=== PATIENT | male | born 1955 | race Caucasian/White ===

== ENCOUNTER → 2016-05-01 | Outpatient (CLI) | payer OTHER ==
[~2016-05-01] MED LIST: ADVAIR 250-501 EACH INH; ALBUTEROL0.63 MG/3 IH; ASPIR 8181 MG PO; CARVEDILOL12.5 MG PO; COMBIVENT RESPIM4 GM IH; CYMBALTA60 MG PO; FOLIC ACID1 MG PO; GENTAMICIN 0.1%15 G2 TOP; LYRICA 75 MG CA75 MG PO; MS CONTIN 60 MG60 M1 PO; OXYCODONE HCL30 MG PO; POTASSIUM20 PO; VITAMIN B-1100 M1 PO; ZOCOR 10 MG TAB10 MG PO; [UNRECOGNIZED DRUG - CODE] PO
== END ==
LOC: HYPER 07:49
DX: L97.521 Non-pressure chronic ulcer of other part of left foot limited to breakdown of skin (principal); S91.301D Unspecified open wound, right foot, subsequent encounter; I73.9 Peripheral vascular disease, unspecified; G62.9 Polyneuropathy, unspecified; F17.210 Nicotine dependence, cigarettes, uncomplicated; Z95.1 Presence of aortocoronary bypass graft; Z89.429 Acquired absence of other toe(s), unspecified side; Z72.89 Other problems related to lifestyle; X58.XXXD Exposure to other specified factors, subsequent encounter

== ENCOUNTER → 2016-07-22 | Outpatient (CLI) | payer OTHER | LOC: HYPER 07:21 | DX: T81.89XD Other complications of procedures, not elsewhere classified, subsequent encounter (principal); L97.521 Non-pressure chronic ulcer of other part of left foot limited to breakdown of skin; G62.9 Polyneuropathy, unspecified; I73.9 Peripheral vascular disease, unspecified; J44.9 Chronic obstructive pulmonary disease, unspecified; E78.00 Pure hypercholesterolemia, unspecified; I25.2 Old myocardial infarction; F17.210 Nicotine dependence, cigarettes, uncomplicated; Z95.1 Presence of aortocoronary bypass graft; Z95.0 Presence of cardiac pacemaker; Z89.429 Acquired absence of other toe(s), unspecified side; Z72.89 Other problems related to lifestyle; Y83.8 Other surgical procedures as the cause of abnormal reaction of the patient, or of later complication, without mention of misadventure at the time of the procedure ==

== ENCOUNTER → 2016-09-01 | Outpatient (CLI) | payer OTHER | LOC: HYPER 08-12 07:03 | DX: L97.521 Non-pressure chronic ulcer of other part of left foot limited to breakdown of skin (principal); S91.301D Unspecified open wound, right foot, subsequent encounter; G62.9 Polyneuropathy, unspecified; I73.9 Peripheral vascular disease, unspecified; E24.9 Cushing's syndrome, unspecified; J44.9 Chronic obstructive pulmonary disease, unspecified; I25.10 Atherosclerotic heart disease of native coronary artery without angina pectoris; E78.00 Pure hypercholesterolemia, unspecified; I25.2 Old myocardial infarction; F17.210 Nicotine dependence, cigarettes, uncomplicated; Z72.89 Other problems related to lifestyle; Z95.1 Presence of aortocoronary bypass graft; Z95.0 Presence of cardiac pacemaker; Z89.429 Acquired absence of other toe(s), unspecified side; X58.XXXD Exposure to other specified factors, subsequent encounter ==

== ENCOUNTER → 2016-09-30 | Outpatient (CLI) | payer OTHER | LOC: HYPER 07:04 | DX: T81.89XD Other complications of procedures, not elsewhere classified, subsequent encounter (principal); L89.893 Pressure ulcer of other site, stage 3; G62.9 Polyneuropathy, unspecified; I73.9 Peripheral vascular disease, unspecified; L97.512 Non-pressure chronic ulcer of other part of right foot with fat layer exposed; E24.9 Cushing's syndrome, unspecified; J44.9 Chronic obstructive pulmonary disease, unspecified; I25.10 Atherosclerotic heart disease of native coronary artery without angina pectoris; E78.00 Pure hypercholesterolemia, unspecified; F17.210 Nicotine dependence, cigarettes, uncomplicated; Z72.89 Other problems related to lifestyle; Y83.8 Other surgical procedures as the cause of abnormal reaction of the patient, or of later complication, without mention of misadventure at the time of the procedure ==

== ENCOUNTER → 2016-11-04 | Outpatient (CLI) | payer OTHER | LOC: HYPER 06:55 | DX: T81.89XD Other complications of procedures, not elsewhere classified, subsequent encounter (principal); L97.521 Non-pressure chronic ulcer of other part of left foot limited to breakdown of skin; L89.893 Pressure ulcer of other site, stage 3; L97.512 Non-pressure chronic ulcer of other part of right foot with fat layer exposed; G62.9 Polyneuropathy, unspecified; I73.9 Peripheral vascular disease, unspecified; E24.9 Cushing's syndrome, unspecified; J44.9 Chronic obstructive pulmonary disease, unspecified; I25.10 Atherosclerotic heart disease of native coronary artery without angina pectoris; E78.00 Pure hypercholesterolemia, unspecified; I25.2 Old myocardial infarction; Z95.0 Presence of cardiac pacemaker; Z95.1 Presence of aortocoronary bypass graft; Z89.429 Acquired absence of other toe(s), unspecified side; F17.210 Nicotine dependence, cigarettes, uncomplicated; Z72.89 Other problems related to lifestyle; Y83.8 Other surgical procedures as the cause of abnormal reaction of the patient, or of later complication, without mention of misadventure at the time of the procedure ==

== ENCOUNTER → 2016-11-23 | Outpatient (CLI) | payer OTHER | LOC: HYPER 07:03 | DX: S91.301D Unspecified open wound, right foot, subsequent encounter (principal); S90.424A Blister (nonthermal), right lesser toe(s), initial encounter; J44.9 Chronic obstructive pulmonary disease, unspecified; I25.10 Atherosclerotic heart disease of native coronary artery without angina pectoris; E78.00 Pure hypercholesterolemia, unspecified; I73.9 Peripheral vascular disease, unspecified; I25.2 Old myocardial infarction; F17.210 Nicotine dependence, cigarettes, uncomplicated; Z72.89 Other problems related to lifestyle; Z95.1 Presence of aortocoronary bypass graft; Z89.429 Acquired absence of other toe(s), unspecified side; Z95.0 Presence of cardiac pacemaker; X58.XXXA Exposure to other specified factors, initial encounter; Y93.89 Activity, other specified; Y92.89 Other specified places as the place of occurrence of the external cause; Y99.8 Other external cause status ==

== ENCOUNTER → 2017-01-01 | Outpatient (CLI) | payer OTHER | LOC: HYPER 12-15 10:49 | DX: L97.511 Non-pressure chronic ulcer of other part of right foot limited to breakdown of skin (principal); I73.9 Peripheral vascular disease, unspecified; J44.9 Chronic obstructive pulmonary disease, unspecified; I25.10 Atherosclerotic heart disease of native coronary artery without angina pectoris; E78.00 Pure hypercholesterolemia, unspecified; Z95.1 Presence of aortocoronary bypass graft; Z95.0 Presence of cardiac pacemaker; Z89.421 Acquired absence of other right toe(s); F17.210 Nicotine dependence, cigarettes, uncomplicated; Z72.89 Other problems related to lifestyle ==

== ENCOUNTER → 2017-04-29 | Outpatient (CLI) | payer OTHER ==
[~2017-04-29] MED LIST changes: +ALDACTONE25 MG PO; +CENTRUM SILVER1 EAC2 PO; +CHLORZOXAZONE500 MG PO; +DOXYCYCLINE HY100 M3 PO; +FISH OIL 1,001000 M2 PO; +IMIPRAMINE HCL25 MG PO; +LISINOPRIL5 MG PO; +NEURONTIN600 MG PO; +PERCOCET 7.5-31 EACH PO; +PLAVIX 75 MG TA75 M1 PO; +TRAZODONE HCL50 MG PO
== END ==
LOC: HYPER 03-03 10:52
DX: S91.301D Unspecified open wound, right foot, subsequent encounter (principal); L84 Corns and callosities; J44.9 Chronic obstructive pulmonary disease, unspecified; I25.10 Atherosclerotic heart disease of native coronary artery without angina pectoris; I73.9 Peripheral vascular disease, unspecified; E78.00 Pure hypercholesterolemia, unspecified; G62.9 Polyneuropathy, unspecified; I25.2 Old myocardial infarction; F17.210 Nicotine dependence, cigarettes, uncomplicated; Z95.1 Presence of aortocoronary bypass graft; Z95.0 Presence of cardiac pacemaker; Z72.89 Other problems related to lifestyle; X58.XXXD Exposure to other specified factors, subsequent encounter

== ENCOUNTER → 2017-06-22 | Outpatient (CLI) | payer OTHER | LOC: HYPER 06-15 06:54 | DX: T81.31XD Disruption of external operation (surgical) wound, not elsewhere classified, subsequent encounter (principal); L89.892 Pressure ulcer of other site, stage 2; L97.811 Non-pressure chronic ulcer of other part of right lower leg limited to breakdown of skin; I87.331 Chronic venous hypertension (idiopathic) with ulcer and inflammation of right lower extremity; I73.9 Peripheral vascular disease, unspecified; L84 Corns and callosities; I25.10 Atherosclerotic heart disease of native coronary artery without angina pectoris; E78.00 Pure hypercholesterolemia, unspecified; G62.9 Polyneuropathy, unspecified; J44.9 Chronic obstructive pulmonary disease, unspecified; F17.210 Nicotine dependence, cigarettes, uncomplicated; Z72.89 Other problems related to lifestyle; Z95.0 Presence of cardiac pacemaker; Z95.1 Presence of aortocoronary bypass graft; Y83.8 Other surgical procedures as the cause of abnormal reaction of the patient, or of later complication, without mention of misadventure at the time of the procedure ==

== ENCOUNTER → 2017-07-06 | Outpatient (CLI) | payer OTHER | LOC: HYPER 06:49 | DX: T81.31XD Disruption of external operation (surgical) wound, not elsewhere classified, subsequent encounter (principal); I87.331 Chronic venous hypertension (idiopathic) with ulcer and inflammation of right lower extremity; L97.811 Non-pressure chronic ulcer of other part of right lower leg limited to breakdown of skin; L84 Corns and callosities; I73.9 Peripheral vascular disease, unspecified; G62.9 Polyneuropathy, unspecified; J44.9 Chronic obstructive pulmonary disease, unspecified; I25.10 Atherosclerotic heart disease of native coronary artery without angina pectoris; E78.00 Pure hypercholesterolemia, unspecified; F17.210 Nicotine dependence, cigarettes, uncomplicated; Z95.1 Presence of aortocoronary bypass graft; Z95.0 Presence of cardiac pacemaker; Z72.89 Other problems related to lifestyle; Y83.8 Other surgical procedures as the cause of abnormal reaction of the patient, or of later complication, without mention of misadventure at the time of the procedure ==

== ENCOUNTER → 2017-09-03 | Outpatient (CLI) | payer OTHER ==
[~2017-09-03] MED LIST changes: -ALDACTONE25 MG PO; -CENTRUM SILVER1 EAC2 PO; -CHLORZOXAZONE500 MG PO; -DOXYCYCLINE HY100 M3 PO; -FISH OIL 1,001000 M2 PO; -IMIPRAMINE HCL25 MG PO; -LISINOPRIL5 MG PO; -NEURONTIN600 MG PO; -PERCOCET 7.5-31 EACH PO; -PLAVIX 75 MG TA75 M1 PO; -TRAZODONE HCL50 MG PO
[2017-09-03 10:19] LABS: CREATININE 0.8 mg/dL (0.7-1.3)
== END ==
LOC: CAT 09-02 16:47 → LABMALL 07:23 → CAT 07:23
PROVIDERS: Emergency Medicine
DX: L97.519 Non-pressure chronic ulcer of other part of right foot with unspecified severity (principal); G62.9 Polyneuropathy, unspecified; M86.8X7 Other osteomyelitis, ankle and foot

== ENCOUNTER → 2017-09-14 | Outpatient (CLI) | payer OTHER | LOC: HYPER 06:43 | DX: T81.31XD Disruption of external operation (surgical) wound, not elsewhere classified, subsequent encounter (principal); I87.331 Chronic venous hypertension (idiopathic) with ulcer and inflammation of right lower extremity; L97.811 Non-pressure chronic ulcer of other part of right lower leg limited to breakdown of skin; I73.9 Peripheral vascular disease, unspecified; E78.00 Pure hypercholesterolemia, unspecified; L84 Corns and callosities; I25.10 Atherosclerotic heart disease of native coronary artery without angina pectoris; G62.9 Polyneuropathy, unspecified; J44.9 Chronic obstructive pulmonary disease, unspecified; F17.210 Nicotine dependence, cigarettes, uncomplicated; Z95.1 Presence of aortocoronary bypass graft; Z95.0 Presence of cardiac pacemaker; Y83.8 Other surgical procedures as the cause of abnormal reaction of the patient, or of later complication, without mention of misadventure at the time of the procedure ==

== ENCOUNTER 2017-10-05 05:28 | Day surgery (SDC) | payer OTHER ==
[~2017-10-05] VITALS: Ht 182.9 cm; Wt 83.9 kg
--- NOTE | ~2017-10-05 | HC ---
[facility] [place] [address] CONSULTATION Name: RODRIGO BAGLEY Room #: [facility].#: [id number] Admission: 10/05/17 Attend Phys: Trisha MalikJaci Goldon, Discharge: 10/06/17 Date of : 59 Report #: [id number] THIS REPORT FOR: //name// CC: FAM unknown Trisha Carlos DATE OF SERVICE: 10/05/2017 HISTORY: This is a 62-year-old male patient well known to the Wound Care Service here who was admitted for planned foot surgery by Podiatry. He has undergone a right percutaneous TOM and resection plantar second metatarsal head for a chronic neuropathic ulceration. He is scheduled for discharge today. He denies any pain in his foot. MEDICATIONS: Include aspirin, carvedilol, duloxetine, folic acid, potassium, simvastatin, thiamine, albuterol, fluticasone and salmeterol, imipramine, clopidogrel, chlorzoxazone, gabapentin, lisinopril, spironolactone, doxycycline, trazodone. ALLERGIES: None. PAST MEDICAL HISTORY: Positive for hypertension, hyperlipidemia, coronary artery disease, peripheral vascular disease, depression, COPD. SOCIAL HISTORY: The patient is a daily smoker one half to 1-1/2 packs per day for 42 years. No alcohol use. FAMILY HISTORY: Noncontributory. REVIEW OF SYSTEMS: A 14-point review of systems is negative other than per history of present illness. PHYSICAL EXAMINATION: VITAL SIGNS: At this time include pulse 86, respiratory rate of 16, blood pressure 155/96, temperature 97.8. GENERAL: This is a chronically ill-appearing male patient who appears to be in minimal distress. HEENT: Head is normocephalic. Nose and throat are clear. NECK: Supple. LUNGS: Clear. ABDOMEN: Soft. Bowel sounds present. EXTREMITIES: Right foot demonstrates intact sutures near the second metatarsal head as well as in the Achilles region. No evidence of infection. Small plantar ulcer is noted that is clean and granulating. CLINICAL IMPRESSION: Neuropathic ulceration of the right foot status post [facility] [address] [place] [address] CONSULTATION Name: KEVYNALIA Room #: [facility] Elissa#: [id number] Admission: 10/05/17 Attend Phys: Trisha Gonzalez, Discharge: 10/06/17 Date of : 59 Report #: [id number] resection of second metatarsal head and Achilles lengthening procedure. RECOMMENDATIONS: The patient will be discharged home. Recommend silver alginate to the areas of the incision line and plantar ulceration. He has to follow up with Dr. Gonzalez tomorrow. We will see him in the office for wound care followup on Wednesday. I appreciate being asked to see him while here in the hospital. <ELECTRONICALLY SIGNED> By: Jerad Mondragon MD 10/19/17 1522 1812 0028 Jerad Mondragon MD /radha
--- NOTE | ~2017-10-05 | PATH ---
[facility] [address] [place] [address] PATHOLOGY RPT PROCEDURE Name: RODRIGO CALI Room #: DEP SDC M.R.#: [id number] Admission: 10/05/17 Date of : 59 Discharge: 10/06/17 Report #: [id number] Path Case #: [id number] L[facility] Accession Number: [id number] . 01 Material submitted: . RT FOOT 2ND METATARSAL HEAD . 01 Clinical history: . Right foot osteomyelitis, neuropathic ulcer, R/O osteomyelitis . 02 Diagnosis: "RT foot second metatarsal head, R/O osteomyelitis", excision: - Decalcified bone, articular cartilage and scant periosteum with reactive / degenerative changes, focal fibrosis, chronic inflammation and bony remodeling; no active acute osteomyelitis identified. (see comment). . [facility]/10/07/2017 . 02 Comment: The bony changes may represent a component of chronic osteomyelitis. Clinical and radiographic correlation is recommended. . (CLW:mml; 10/07/2017) . . 02 Electronically signed: . Lottie Olivares MD, Pathologist NPI- [id number] . 01 Gross description: . The specimen is received in formalin, labeled "Rodrigo Cali, second metatarsal head," and additionally labeled on the requisition as, "right foot second metatarsal head". Received is a segment of light [place] bone with smooth articulating surfaces measuring 1.5 x 1.5 x 0.8 cm in greatest dimensions. The surgical margin is inked. The specimen is submitted entirely in cassette A1, following decalcification. ([facility]; 10/06/2017) QAC/QAC . 02 CPT . 986598, [id number] Performed at: [address] [id number] MD Newton Sloan MD Phone: [phone] Performed at: 02 [facility] [address] [place] [address] PATHOLOGY RPT PROCEDURE Name: RODRIGO CALI Room #: DEP [facility].#: [id number] Admission: 10/05/17 Date of : 59 Discharge: 10/06/17 Report #: [id number] Path Case #: [id number] [address] [place], [place] [id number] MD Lakisha Barajas MD Phone: [phone]
[~2017-10-05 05:28] MED LIST changes: +ALDACTONE25 MG PO; +CHLORZOXAZONE500 MG PO; +DOXYCYCLINE HY100 M3 PO; +IMIPRAMINE HCL25 MG PO; +LISINOPRIL5 MG PO; +NEURONTIN600 MG PO; +PLAVIX 75 MG TA75 M1 PO; +TRAZODONE HCL50 MG PO
[2017-10-05 13:16] LABS: HEMATOCRIT 44.7 % (42.0-52.0); HEMOGLOBIN 15.6 gm/dL (14.0-18.0); MCH 32.5 pg (26.0-34.0); MCHC 34.8 g/dL (28.0-37.0); MCV 93.5 fL (80.0-100.0); RBC 4.79 mil/uL (4.50-6.00); RDW 14.3 % (10.5-14.5); WBC 9.9 thou/uL (4.0-11.0)
[2017-10-05 13:25] LABS: CALCIUM 9.9 mg/dL (8.5-10.1); CREATININE 0.8 mg/dL (0.7-1.3); POTASSIUM 3.6 mmol/L (3.5-5.1)
[2017-10-05 14:00] VITALS: BP 130/94
[2017-10-05 17:10] VITALS: BP 162/103
[2017-10-05 17:40] VITALS: BP 157/95
[2017-10-05 18:10] VITALS: BP 167/102
[2017-10-05 19:37] VITALS: BP 158/82
[2017-10-06 04:00] VITALS: BP 137/78
[2017-10-06 05:30] LABS: HEMATOCRIT 38.5 % (42.0-52.0); MCH 32.2 pg (26.0-34.0); MCHC 34.1 g/dL (28.0-37.0); MCV 94.3 fL (80.0-100.0); RBC 4.08 mil/uL (4.50-6.00); RDW 14.8 % (10.5-14.5); WBC 8.5 thou/uL (4.0-11.0)
[2017-10-06 05:35] LABS: HEMOGLOBIN 13.1 gm/dL (14.0-18.0)
[2017-10-06 05:56] LABS: CALCIUM 8.3 mg/dL (8.5-10.1); CREATININE 0.8 mg/dL (0.7-1.3); POTASSIUM 3.5 mmol/L (3.5-5.1)
[2017-10-06 08:00] VITALS: BP 155/96
[2017-10-06] MEDS ORDERED: PERCOCET 7.5-31 EACH PO (10:17)
[2017-10-06 11:23] VITALS: BP 155/96
[2017-10-06 11:58] VITALS: BP 155/96
== END 2017-10-06 11:59 | disposition home or self-care (01) ==
LOC: OR 05:28 → TBA 05:29 → OR 15:58 → 4N 16:53 → ENTRNSPT 10-06 11:39 → EDTRNSPTSTS 10-06 11:41 → OR 10-06 11:59
PROVIDERS: Hospitalist; Podiatrist Foot & Ankle Surgery
DX: M19.071 Primary osteoarthritis, right ankle and foot (principal); L97.512 Non-pressure chronic ulcer of other part of right foot with fat layer exposed; M21.6X1 Other acquired deformities of right foot; M24.571 Contracture, right ankle; I10 Essential (primary) hypertension; I25.10 Atherosclerotic heart disease of native coronary artery without angina pectoris; E78.5 Hyperlipidemia, unspecified; I73.9 Peripheral vascular disease, unspecified; F11.20 Opioid dependence, uncomplicated; G80.9 Cerebral palsy, unspecified; J43.9 Emphysema, unspecified; F17.210 Nicotine dependence, cigarettes, uncomplicated; F32.9 Major depressive disorder, single episode, unspecified; Z98.890 Other specified postprocedural states; Z79.899 Other long term (current) drug therapy; Z95.0 Presence of cardiac pacemaker; Z79.82 Long term (current) use of aspirin; Z95.1 Presence of aortocoronary bypass graft
CPT/HCPCS: 10790; 50010; 50101; 50386; 50951; 57091; 62110; 62850; 70005

== ENCOUNTER → 2017-11-09 | Outpatient (CLI) | payer OTHER ==
[~2017-11-09] MED LIST changes: +PERCOCET 7.5-31 EACH PO
== END ==
LOC: HYPER 10-12 11:56
DX: T81.31XD Disruption of external operation (surgical) wound, not elsewhere classified, subsequent encounter (principal); L97.511 Non-pressure chronic ulcer of other part of right foot limited to breakdown of skin; I73.9 Peripheral vascular disease, unspecified; L84 Corns and callosities; I25.10 Atherosclerotic heart disease of native coronary artery without angina pectoris; E78.00 Pure hypercholesterolemia, unspecified; G60.3 Idiopathic progressive neuropathy; G62.9 Polyneuropathy, unspecified; J44.9 Chronic obstructive pulmonary disease, unspecified; F17.210 Nicotine dependence, cigarettes, uncomplicated; Z95.1 Presence of aortocoronary bypass graft; Z95.0 Presence of cardiac pacemaker; Y83.8 Other surgical procedures as the cause of abnormal reaction of the patient, or of later complication, without mention of misadventure at the time of the procedure

== ENCOUNTER → 2017-12-14 | Outpatient (CLI) | payer OTHER | LOC: HYPER 07:00 | DX: T81.31XD Disruption of external operation (surgical) wound, not elsewhere classified, subsequent encounter (principal); L89.893 Pressure ulcer of other site, stage 3; I73.9 Peripheral vascular disease, unspecified; L84 Corns and callosities; I25.10 Atherosclerotic heart disease of native coronary artery without angina pectoris; E78.00 Pure hypercholesterolemia, unspecified; G62.9 Polyneuropathy, unspecified; G60.3 Idiopathic progressive neuropathy; J44.9 Chronic obstructive pulmonary disease, unspecified; F17.210 Nicotine dependence, cigarettes, uncomplicated; Z95.0 Presence of cardiac pacemaker; Y83.8 Other surgical procedures as the cause of abnormal reaction of the patient, or of later complication, without mention of misadventure at the time of the procedure ==

== ENCOUNTER → 2018-02-10 | Outpatient (CLI) | payer OTHER ==
[~2018-02-10] MED LIST changes: +CENTRUM SILVER1 EAC2 PO; +FISH OIL 1,001000 M2 PO
== END ==
LOC: HYPER 06:28
DX: T87.89 Other complications of amputation stump (principal); L97.511 Non-pressure chronic ulcer of other part of right foot limited to breakdown of skin; L84 Corns and callosities; E78.00 Pure hypercholesterolemia, unspecified; E24.9 Cushing's syndrome, unspecified; G60.3 Idiopathic progressive neuropathy; I73.9 Peripheral vascular disease, unspecified; I25.10 Atherosclerotic heart disease of native coronary artery without angina pectoris; I25.2 Old myocardial infarction; J44.9 Chronic obstructive pulmonary disease, unspecified; F17.210 Nicotine dependence, cigarettes, uncomplicated; Z95.1 Presence of aortocoronary bypass graft; Z95.0 Presence of cardiac pacemaker; Z89.429 Acquired absence of other toe(s), unspecified side; Y83.5 Amputation of limb(s) as the cause of abnormal reaction of the patient, or of later complication, without mention of misadventure at the time of the procedure

== ENCOUNTER → 2018-07-04 | Outpatient (CLI) | payer OTHER | LOC: HYPER 03-10 09:06 | DX: L97.511 Non-pressure chronic ulcer of other part of right foot limited to breakdown of skin (principal); I73.9 Peripheral vascular disease, unspecified; L84 Corns and callosities; I25.10 Atherosclerotic heart disease of native coronary artery without angina pectoris; E78.00 Pure hypercholesterolemia, unspecified; G62.9 Polyneuropathy, unspecified; G60.3 Idiopathic progressive neuropathy; J44.9 Chronic obstructive pulmonary disease, unspecified; F17.210 Nicotine dependence, cigarettes, uncomplicated ==

== ENCOUNTER → 2018-08-15 | Outpatient (CLI) | payer OTHER | LOC: HYPER 08-01 07:01 | DX: L97.511 Non-pressure chronic ulcer of other part of right foot limited to breakdown of skin (principal); L84 Corns and callosities; E78.00 Pure hypercholesterolemia, unspecified; G62.9 Polyneuropathy, unspecified; I73.9 Peripheral vascular disease, unspecified; I25.10 Atherosclerotic heart disease of native coronary artery without angina pectoris; I25.2 Old myocardial infarction; J44.9 Chronic obstructive pulmonary disease, unspecified; F17.210 Nicotine dependence, cigarettes, uncomplicated; Z95.1 Presence of aortocoronary bypass graft; Z95.0 Presence of cardiac pacemaker ==

== ENCOUNTER → 2018-09-06 | Outpatient (CLI) | payer OTHER | LOC: HYPER 06:57 | DX: L89.893 Pressure ulcer of other site, stage 3 (principal); L97.511 Non-pressure chronic ulcer of other part of right foot limited to breakdown of skin; I73.9 Peripheral vascular disease, unspecified; G60.3 Idiopathic progressive neuropathy; G62.9 Polyneuropathy, unspecified; I25.10 Atherosclerotic heart disease of native coronary artery without angina pectoris; E78.00 Pure hypercholesterolemia, unspecified; L84 Corns and callosities; J44.9 Chronic obstructive pulmonary disease, unspecified; F17.210 Nicotine dependence, cigarettes, uncomplicated; Z95.0 Presence of cardiac pacemaker ==

== ENCOUNTER → 2018-10-19 | Outpatient (CLI) | payer OTHER | LOC: HYPER 10-04 06:38 | DX: L89.893 Pressure ulcer of other site, stage 3 (principal); L97.511 Non-pressure chronic ulcer of other part of right foot limited to breakdown of skin; I73.9 Peripheral vascular disease, unspecified; I25.10 Atherosclerotic heart disease of native coronary artery without angina pectoris; G60.3 Idiopathic progressive neuropathy; L84 Corns and callosities; E78.00 Pure hypercholesterolemia, unspecified; J44.9 Chronic obstructive pulmonary disease, unspecified; F17.210 Nicotine dependence, cigarettes, uncomplicated; Z95.0 Presence of cardiac pacemaker ==

== ENCOUNTER → 2018-12-01 | Outpatient (CLI) | payer OTHER | LOC: HYPER 11-09 06:13 | DX: L89.893 Pressure ulcer of other site, stage 3 (principal); L97.512 Non-pressure chronic ulcer of other part of right foot with fat layer exposed; I73.9 Peripheral vascular disease, unspecified; L84 Corns and callosities; I25.10 Atherosclerotic heart disease of native coronary artery without angina pectoris; E78.00 Pure hypercholesterolemia, unspecified; G60.3 Idiopathic progressive neuropathy; G62.9 Polyneuropathy, unspecified; J44.9 Chronic obstructive pulmonary disease, unspecified; F17.210 Nicotine dependence, cigarettes, uncomplicated ==

== ENCOUNTER → 2018-12-28 | Outpatient (CLI) | payer OTHER | LOC: HYPER 12-09 14:10 | DX: L89.893 Pressure ulcer of other site, stage 3 (principal); S90.414D Abrasion, right lesser toe(s), subsequent encounter; I73.9 Peripheral vascular disease, unspecified; I25.10 Atherosclerotic heart disease of native coronary artery without angina pectoris; E78.00 Pure hypercholesterolemia, unspecified; G60.3 Idiopathic progressive neuropathy; G62.9 Polyneuropathy, unspecified; J44.9 Chronic obstructive pulmonary disease, unspecified; F17.210 Nicotine dependence, cigarettes, uncomplicated; X58.XXXD Exposure to other specified factors, subsequent encounter ==

== ENCOUNTER → 2019-01-12 | Outpatient (CLI) | payer OTHER | LOC: HYPER 06:59 | DX: L89.893 Pressure ulcer of other site, stage 3 (principal); L97.511 Non-pressure chronic ulcer of other part of right foot limited to breakdown of skin; L84 Corns and callosities; I25.10 Atherosclerotic heart disease of native coronary artery without angina pectoris; I73.9 Peripheral vascular disease, unspecified; G60.3 Idiopathic progressive neuropathy; G62.9 Polyneuropathy, unspecified; E78.00 Pure hypercholesterolemia, unspecified; J44.9 Chronic obstructive pulmonary disease, unspecified; F17.210 Nicotine dependence, cigarettes, uncomplicated ==

== ENCOUNTER → 2019-02-02 | Outpatient (CLI) | payer OTHER | LOC: HYPER 10:15 | DX: L89.893 Pressure ulcer of other site, stage 3 (principal); L97.512 Non-pressure chronic ulcer of other part of right foot with fat layer exposed; G60.3 Idiopathic progressive neuropathy; L84 Corns and callosities; J44.9 Chronic obstructive pulmonary disease, unspecified; I25.10 Atherosclerotic heart disease of native coronary artery without angina pectoris; E78.00 Pure hypercholesterolemia, unspecified; I73.89 Other specified peripheral vascular diseases; F17.210 Nicotine dependence, cigarettes, uncomplicated; Z95.1 Presence of aortocoronary bypass graft; Z95.0 Presence of cardiac pacemaker; Z89.429 Acquired absence of other toe(s), unspecified side; Z79.82 Long term (current) use of aspirin ==

== ENCOUNTER → 2019-02-23 | Outpatient (CLI) | payer OTHER | LOC: HYPER 03:55 | DX: L89.893 Pressure ulcer of other site, stage 3 (principal); L97.511 Non-pressure chronic ulcer of other part of right foot limited to breakdown of skin; S90.414D Abrasion, right lesser toe(s), subsequent encounter; L84 Corns and callosities; E78.00 Pure hypercholesterolemia, unspecified; I25.10 Atherosclerotic heart disease of native coronary artery without angina pectoris; I73.9 Peripheral vascular disease, unspecified; G60.3 Idiopathic progressive neuropathy; G62.9 Polyneuropathy, unspecified; J44.9 Chronic obstructive pulmonary disease, unspecified; F17.210 Nicotine dependence, cigarettes, uncomplicated; X58.XXXD Exposure to other specified factors, subsequent encounter ==

== ENCOUNTER → 2019-03-03 | Outpatient (CLI) | payer OTHER | LOC: HYPER 07:52 | DX: L97.511 Non-pressure chronic ulcer of other part of right foot limited to breakdown of skin (principal); L89.893 Pressure ulcer of other site, stage 3; S90.414D Abrasion, right lesser toe(s), subsequent encounter; L84 Corns and callosities; G60.3 Idiopathic progressive neuropathy; E78.00 Pure hypercholesterolemia, unspecified; I25.10 Atherosclerotic heart disease of native coronary artery without angina pectoris; I73.9 Peripheral vascular disease, unspecified; I25.2 Old myocardial infarction; J44.9 Chronic obstructive pulmonary disease, unspecified; F17.210 Nicotine dependence, cigarettes, uncomplicated; Z95.1 Presence of aortocoronary bypass graft; Z95.0 Presence of cardiac pacemaker; X58.XXXD Exposure to other specified factors, subsequent encounter ==

== ENCOUNTER → 2019-03-10 | Outpatient (CLI) | payer OTHER | LOC: HYPER 13:00 | DX: L89.893 Pressure ulcer of other site, stage 3 (principal); L97.511 Non-pressure chronic ulcer of other part of right foot limited to breakdown of skin; S90.414D Abrasion, right lesser toe(s), subsequent encounter; L84 Corns and callosities; I73.9 Peripheral vascular disease, unspecified; I25.10 Atherosclerotic heart disease of native coronary artery without angina pectoris; E78.00 Pure hypercholesterolemia, unspecified; G60.3 Idiopathic progressive neuropathy; G62.9 Polyneuropathy, unspecified; J44.9 Chronic obstructive pulmonary disease, unspecified; F17.210 Nicotine dependence, cigarettes, uncomplicated; Z95.0 Presence of cardiac pacemaker; X58.XXXD Exposure to other specified factors, subsequent encounter ==

== ENCOUNTER → 2019-03-15 | Outpatient (CLI) | payer OTHER | LOC: HYPER 16:54 | DX: L89.893 Pressure ulcer of other site, stage 3 (principal); S90.414D Abrasion, right lesser toe(s), subsequent encounter; L84 Corns and callosities; I25.10 Atherosclerotic heart disease of native coronary artery without angina pectoris; E78.00 Pure hypercholesterolemia, unspecified; I73.9 Peripheral vascular disease, unspecified; G60.3 Idiopathic progressive neuropathy; G62.9 Polyneuropathy, unspecified; F17.210 Nicotine dependence, cigarettes, uncomplicated; J44.9 Chronic obstructive pulmonary disease, unspecified; Z95.0 Presence of cardiac pacemaker; X58.XXXD Exposure to other specified factors, subsequent encounter ==

== ENCOUNTER → 2019-03-30 | Outpatient (CLI) | payer OTHER | LOC: HYPER 08:51 | DX: L89.893 Pressure ulcer of other site, stage 3 (principal); I73.9 Peripheral vascular disease, unspecified; L97.511 Non-pressure chronic ulcer of other part of right foot limited to breakdown of skin; L84 Corns and callosities; I25.10 Atherosclerotic heart disease of native coronary artery without angina pectoris; G60.3 Idiopathic progressive neuropathy; G62.9 Polyneuropathy, unspecified; E78.00 Pure hypercholesterolemia, unspecified; J44.9 Chronic obstructive pulmonary disease, unspecified; F17.210 Nicotine dependence, cigarettes, uncomplicated ==

== ENCOUNTER → 2019-05-10 | Outpatient (CLI) | payer OTHER | LOC: HYPER 07:55 | DX: L89.893 Pressure ulcer of other site, stage 3 (principal); S90.414D Abrasion, right lesser toe(s), subsequent encounter; L84 Corns and callosities; E24.9 Cushing's syndrome, unspecified; E78.00 Pure hypercholesterolemia, unspecified; G60.3 Idiopathic progressive neuropathy; I73.9 Peripheral vascular disease, unspecified; I25.10 Atherosclerotic heart disease of native coronary artery without angina pectoris; I25.2 Old myocardial infarction; J44.9 Chronic obstructive pulmonary disease, unspecified; F17.210 Nicotine dependence, cigarettes, uncomplicated; Z95.1 Presence of aortocoronary bypass graft; Z89.429 Acquired absence of other toe(s), unspecified side; Z95.0 Presence of cardiac pacemaker; X58.XXXD Exposure to other specified factors, subsequent encounter ==

== ENCOUNTER → 2019-06-12 | Outpatient (CLI) | payer OTHER | LOC: HYPER 09:44 | DX: L89.893 Pressure ulcer of other site, stage 3 (principal); S90.414A Abrasion, right lesser toe(s), initial encounter; L84 Corns and callosities; E78.00 Pure hypercholesterolemia, unspecified; G60.3 Idiopathic progressive neuropathy; G62.9 Polyneuropathy, unspecified; I73.9 Peripheral vascular disease, unspecified; I25.2 Old myocardial infarction; I25.10 Atherosclerotic heart disease of native coronary artery without angina pectoris; J44.9 Chronic obstructive pulmonary disease, unspecified; F17.210 Nicotine dependence, cigarettes, uncomplicated; Z95.1 Presence of aortocoronary bypass graft; Z89.429 Acquired absence of other toe(s), unspecified side; Z95.0 Presence of cardiac pacemaker; X58.XXXA Exposure to other specified factors, initial encounter; Y93.89 Activity, other specified; Y92.89 Other specified places as the place of occurrence of the external cause; Y99.8 Other external cause status ==

== ENCOUNTER → 2019-06-19 | Outpatient (CLI) | payer OTHER | LOC: HYPER 10:09 | DX: L89.893 Pressure ulcer of other site, stage 3 (principal); S80.811A Abrasion, right lower leg, initial encounter; S90.414D Abrasion, right lesser toe(s), subsequent encounter; S90.424D Blister (nonthermal), right lesser toe(s), subsequent encounter; L84 Corns and callosities; G60.3 Idiopathic progressive neuropathy; I73.89 Other specified peripheral vascular diseases; M51.36 Other intervertebral disc degeneration, lumbar region; J44.9 Chronic obstructive pulmonary disease, unspecified; I25.10 Atherosclerotic heart disease of native coronary artery without angina pectoris; E24.9 Cushing's syndrome, unspecified; E78.00 Pure hypercholesterolemia, unspecified; F17.210 Nicotine dependence, cigarettes, uncomplicated; Z95.1 Presence of aortocoronary bypass graft; Z95.0 Presence of cardiac pacemaker; Z79.82 Long term (current) use of aspirin; X58.XXXD Exposure to other specified factors, subsequent encounter; X58.XXXA Exposure to other specified factors, initial encounter; Y93.89 Activity, other specified; Y92.89 Other specified places as the place of occurrence of the external cause; Y99.8 Other external cause status ==

== ENCOUNTER → 2019-06-26 | Outpatient (CLI) | payer OTHER | LOC: HYPER 10:12 | DX: L89.893 Pressure ulcer of other site, stage 3 (principal); S80.811D Abrasion, right lower leg, subsequent encounter; I73.9 Peripheral vascular disease, unspecified; I25.10 Atherosclerotic heart disease of native coronary artery without angina pectoris; I25.2 Old myocardial infarction; G60.3 Idiopathic progressive neuropathy; G62.9 Polyneuropathy, unspecified; J44.9 Chronic obstructive pulmonary disease, unspecified; E78.00 Pure hypercholesterolemia, unspecified; F17.210 Nicotine dependence, cigarettes, uncomplicated; X58.XXXD Exposure to other specified factors, subsequent encounter ==

== ENCOUNTER → 2019-07-03 | Outpatient (CLI) | payer OTHER | LOC: HYPER 10:23 | DX: L89.893 Pressure ulcer of other site, stage 3 (principal); S80.811D Abrasion, right lower leg, subsequent encounter; S90.424D Blister (nonthermal), right lesser toe(s), subsequent encounter; S90.414D Abrasion, right lesser toe(s), subsequent encounter; G60.3 Idiopathic progressive neuropathy; L84 Corns and callosities; J44.9 Chronic obstructive pulmonary disease, unspecified; I25.10 Atherosclerotic heart disease of native coronary artery without angina pectoris; E24.9 Cushing's syndrome, unspecified; E78.00 Pure hypercholesterolemia, unspecified; I73.89 Other specified peripheral vascular diseases; F17.210 Nicotine dependence, cigarettes, uncomplicated; Z79.82 Long term (current) use of aspirin; Z95.1 Presence of aortocoronary bypass graft; Z95.0 Presence of cardiac pacemaker; X58.XXXD Exposure to other specified factors, subsequent encounter ==

== ENCOUNTER 2019-07-19 15:26 | Inpatient (IN) | payer OTHER ==
[~2019-07-19] VITALS: Ht 182.9 cm; Wt 91.6 kg
--- NOTE | ~2019-07-19 | HC ---
[facility] [place] [address] CONSULTATION Name: RODRIGO BALGEY Room #: 411-P [facility] IN M.R.#: [id number] Admission: 07/19/19 Attend Phys: Job Serna MD Discharge: Date of : 59 Report #: [id number] THIS REPORT FOR: cc: Rupa Glez MD, Kimberly A. MD Smithson, David G. MD ~ CC: Rupa Serna DATE OF SERVICE: 07/24/2019 HISTORY OF PRESENT ILLNESS: The patient is a 64-year-old white male admitted to [facility] on 07/19/2019 with right foot cellulitis, ulcerated wound. He ended up undergoing a right transmetatarsal amputation on 07/22/2019 along with Achilles tendon lengthening performed by Dr. Young. He has been followed for some left lower quadrant abdominal pain that has resolved. He also has some anemia, being monitored. We are seeing him in rehabilitation medicine consultation. PAST MEDICAL HISTORY: Includes hypertension, elevated lipids, peripheral neuropathy, coronary artery disease, status post coronary artery bypass grafting, peripheral vascular disease, tobacco abuse, COPD, chronic pain, post back stimulator. He has had a permanent pacemaker. HABITS: A 37-[id number]-[id number] history, smokes half pack a day. MEDICATIONS: Please see the full medication listing. ALLERGIES: No known drug allergies. SOCIAL HISTORY: He lives in a house alone, 5 steps in. Premorbidly on disability. He has 2 sisters and notes that he cannot go home alone ____ he does not think that can then he would need to go stay with one of his sisters initially. His sister would have 4 steps in and he would need assistance with that. REVIEW OF SYSTEMS: No current complaints of chest pain, shortness of breath or abdominal discomfort. PHYSICAL EXAMINATION: GENERAL: A 64-year-old white male in no obvious distress. The patient is alert. VITAL SIGNS: Last recorded temperature 97.1, pulse 59, respirations 16, blood pressure 135/86. HEENT: Appeared to be benign. Dentition is poor. Facies are symmetric. EXTREMITIES: Functional range of motion of both upper extremities. Strength [facility] [address] [place] [address] CONSULTATION Name: RODRIGO BAGLEY Room #: 411-P [facility] IN M.R.#: [id number] Admission: 07/19/19 Attend Phys: Job Serna MD Discharge: Date of : 59 Report #: [id number] appeared to be good at least a grade 4+/5 to 4/5. Left lower extremity, no focal calf swelling. Has decreased distal sensation. No calf swelling. Tone appeared to be intact. Strength is a grade 4-/5. Right lower extremity has good strength proximally. He has the dressing over the right foot transmetatarsal amputation. ASSESSMENT: A 64-year-old white male with the following problem list: 1. Right foot cellulitis with ulcerated wound, status post transmetatarsal amputation on 07/22/2019 along with Achilles tendon lengthening. He is nonweightbearing. 2. Peripheral neuropathy. 3. Peripheral vascular disease. 4. Hyperlipidemia. 5. Prior history of coronary artery bypass grafting. 6. Chronic back pain with prior back stimulator. 7. Permanent pacemaker. 8. Tobacco abuse. PLAN: The patient has been ____ in the past and desires to go to skilled. He desires his long of a stay as possible as he does not feel that he will be able to return back home alone. He indicates that once he has completed skills, he will probably need to go to his sister's house, so he can have more assistance initially. Discussed with the regional rehabilitation director who relayed this to case management. Thank you for asking us to assist in this patient's care. We will be glad to follow along with you while he remains here at [facility]. By: 1258 0051 Leonid Tong MD /nt
[2019-07-19 15:28] VITALS: BP 142/6
[2019-07-19 16:10] LABS: ABSOLUTE NEUTROPHILS 3.6 thou/uL (1.4-8.2); BASOPHILS 1.2 % (0.0-2.0); EOSINOPHILS 2.5 % (0.0-3.0); HEMATOCRIT 38.2 % (42.0-52.0); HEMOGLOBIN 13.2 gm/dL (14.0-18.0); LYMPHOCYTES 21.3 % (24.0-44.0); MCH 32.8 pg (26.0-34.0); MCHC 34.6 g/dL (28.0-37.0); MCV 94.6 fL (80.0-100.0); MONOCYTES 9.9 % (1.0-8.0); PLATELET COUNT 191 thou/uL (150-400); POLYS 65.1 % (36.0-66.0); RBC 4.04 mil/uL (4.50-6.00); RDW 13.5 % (10.5-14.5); WBC 5.5 thou/uL (4.0-11.0)
[2019-07-19 16:18] LABS: CALCIUM 9.3 mg/dL (8.5-10.1); CREATININE 0.7 mg/dL (0.7-1.3); POTASSIUM 4.6 mmol/L (3.5-5.1)
[2019-07-19 16:24] LABS: ALBUMIN 3.8 g/dL (3.4-5.0); TOTAL BILIRUBIN 0.6 mg/dL (<0.1-1.0); TOTAL PROTEIN 7.1 g/dL (6.4-8.2)
[2019-07-19 18:06] VITALS: BP 134/73
[2019-07-19 18:44] VITALS: BP 134/73
[2019-07-19 19:00] VITALS: BP 150/66
--- NOTE | 2019-07-19 21:18 | NUR ---
PICC PLACED FOR LT ABX FOR BILAT FEET WOUNDS, HX OF DM AND OSTEO. PLEASE SEE INSERTION NOTE FOR DETAILS
--- NOTE | 2019-07-19 22:02 | NUR ---
CXR ORDERED X2, NOT COMPLETED OF YET. IF TIP IS IN THE REGION OF THE SVC IT IS OK TO USE PER PROTOCOL
[2019-07-20 02:58] VITALS: BP 129/71
--- NOTE | 2019-07-20 05:33 | NUR ---
PT TO UNIT AROUND 1900. ORIENTED TO UNIT, STAFF AND USE OF CALL LIGHT. ADMISSION ASSESSMENT COMPLETED. PT REPORTS PAIN IN LEGS DUE TO NOT TAKING GABAPENTIN ALL DAY. HOME MEDS RESTARTED. ANTIBIOTICS INFUSING PER ORDER. PICS OF WOUNDS TAKEN AND PUT IN CHART. UP AD LULU. VSS. PROVIDED A SANDWICH, PT EXPERIENCED SOME NAUSEA AFTER THIS THAT QUICKLY RESOLVED. PT RESTING COMFORTABLY IN BED, WILL CONTINUE TO MONITOR.
[2019-07-20 07:30] VITALS: BP 128/68
--- NOTE | 2019-07-20 13:54 | NUR ---
PT WAS A DIRECT ADMIT FROM THE WOUND CLINIC. HE WAS ADMITTED RELATED TO CELLUTLITIS RIGHT FOOT. CM REVIEWED CHART AND SPOKE WITH CARE TEAM. CM CALLED AND SPOKE WITH PT THIS DAY AND HE APPEARED TO BE A&O X4. CM ROLE WAS INTRODUCED. PT INDICATED HE LIVES IN A HOUSE ALONE WITH 3 STEPS TO ENTER AND NONE INSIDE. 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 PT INDICATED NO DME AND THAT HE HAD BEEN SEEING DR. GIBBS IN OP WC CLINIC URINALYSIS TECHNICIAN. PT INDICATED HE PLANS TO RETURN HOME ONCE MEDICALLY STABLE. CM TO FOLLOW INDICATED WITH DC PLANNING.
[2019-07-20 16:10] VITALS: BP 159/72
--- NOTE | 2019-07-20 18:27 | NUR ---
PT LEFT FOR CT AROUND 1730 PER WC ACCOMPANIED BY TRANSPORTER.REPORT OFF TO NAHID MCKINNEY ON 4N THAT PT NEEDS TRANSFER TO SR SU[facility]ES.PAIN MED GIVEN UPON PT RETURNED TO FLOOR FROM CT AND MOVED TO SR SU[facility] PER WC IN STABLE CONDITION.
[2019-07-20 19:24] VITALS: BP 155/82
--- NOTE | 2019-07-20 19:47 | NUR ---
PATIENT TRANSFERRED FROM [address] [place] [address], REPORT FROM ALFONSO/FAYE. PATIENT ALERT AND ORIENTED X 4. UP AD LULU. PATIENT HAS RIGHT FOOT WOUND. NEW ORDER FOR GENTAMICIN TOPICAL FOR WOUND CARE ORDERED, BUT NOT RECEIVED PER SUKHJINDER/FAYE YET FROM THE PHARMACY. UPON ARRIVAL TO THE UNIT, C/O PAIN, ALFONSO/FAYE CAME AND GAVE THE PATIENT PAIN MEDS. C/O NAUSEA, BUT TOO SOON FOR ZOFRAN. SHANTE CONTINUE TO MONITOR.
[2019-07-21 03:36] VITALS: BP 144/83
--- NOTE | 2019-07-21 04:37 | NUR ---
Assumed pt care at 1900. Pt is A/OX4. VSS. Up ad abena w/o problems voiced. Wound care to right plantar foot and left great toe completed before HS; Pt tolerated well. C/o nausea w/o emesis,medicated per EMAR w/o further complaints. C/o pain LOP 5/10,medicated with [place] with relief reported. Pt has a single lumen RUE PICC line patent with good blood return. Resting quietly at this time will continue to monitor pt.
[2019-07-21 07:26] VITALS: BP 132/70
[2019-07-21 13:26] LABS: ABSOLUTE NEUTROPHILS 3.5 thou/uL (1.4-8.2); HEMATOCRIT 35.5 % (42.0-52.0); MCH 32.2 pg (26.0-34.0); MCHC 33.9 g/dL (28.0-37.0); MONOCYTES 8.8 % (1.0-8.0); PLATELET COUNT 139 thou/uL (150-400); POLYS 69.2 % (36.0-66.0); RBC 3.74 mil/uL (4.50-6.00); RDW 13.5 % (10.5-14.5); WBC 5.1 thou/uL (4.0-11.0)
[2019-07-21 13:37] LABS: ALBUMIN 3.3 g/dL (3.4-5.0); CALCIUM 9.1 mg/dL (8.5-10.1); MAGNESIUM 1.9 mg/dL (1.8-2.4); POTASSIUM 4.4 mmol/L (3.5-5.1); TOTAL BILIRUBIN 0.5 mg/dL (<0.1-1.0); TOTAL PROTEIN 6.6 g/dL (6.4-8.2)
--- NOTE | 2019-07-21 14:22 | HC ---
[facility] [place] [address] CONSULTATION Name: RODRIGO BAGLEY Room #: 411-P ADM IN M.R.#: [id number] Admission: 07/19/19 Attend Phys: Job Serna MD Discharge: Date of : 59 Report #: [id number] THIS REPORT FOR: cc: Rupa Glez MD, Kimberly A. MD Althoff, Jeffrey R. MD ~ CC: Rupa Serna DATE OF SERVICE: 07/20/2019 CHIEF COMPLAINT: Diabetic neuropathic ulceration of the right foot. HISTORY OF PRESENT ILLNESS: This is a 64-year-old male patient with a history of diabetes mellitus and peripheral neuropathy and prior amputation of the right great toe. He has had persistent neuropathic ulcerations on the plantar aspect of the left foot as well as right foot first MTP region. A trial of total contact cast was undertaken. He developed additional callus on the right forefoot and total contact casting was discontinued. The calloused area; however, continued to ulcerate. He has developed some infection and is admitted to the hospital for further evaluation and treatment. The patient denies any pain associated with this. He was prescribed Augmentin on the outpatient basis, which was switched to doxycycline; however, that was discontinued by the patient due to nausea and vomiting. The patient has been admitted to the hospital for further evaluation and treatment including intravenous antibiotic therapy and additional diagnostic study. PAST MEDICAL HISTORY: Positive for COPD, depression, hypertension, hyperlipidemia, coronary artery disease, status post CABG and mitral valve repair, has a history of peripheral vascular disease, prior right great toe amputation, spinal cord stimulator in his low back. SOCIAL HISTORY: The patient smokes cigarettes daily, half a pack per day for 35 years. Negative alcohol use. Positive marijuana use. MEDICATIONS: Includes aspirin, Coreg, Cymbalta, folic acid, K-Dur, Zocor, vitamin D, albuterol, imipramine, Plavix, Neurontin, Zestril, Aldactone, doxycycline. ALLERGIES: No known drug allergies. REVIEW OF SYSTEMS: CONSTITUTIONAL: The patient denies fever, chills or weight loss. NEUROLOGICAL: The patient does have peripheral neuropathy, decreased light touch sensation. EYES: The patient denies visual changes, redness, or drainage. [address] [address] CONSULTATION Name: RODRIGO BAGLEY Room #: 411-P [facility] IN ..#: [id number] Admission: 07/19/19 Attend Phys: Job Serna MD Discharge: Date of : 59 Report #: [id number] ENT: The patient denies earache, nasal drainage, or throat. CARDIOVASCULAR: The patient denies chest pain, palpitations or diaphoresis. PULMONARY: The patient denies cough or shortness of breath. GASTROINTESTINAL: The patient does complain of positive nausea. Denies vomiting or diarrhea. GENITOURINARY: The patient denies frequency or urgency of urination. Denies dysuria. ORTHOPEDIC: The patient is aware of the ulcerations on the feet. Denies pain associated with the ulcerations due to his significant neuropathy. Other systems in a 14-point review of systems are negative. PHYSICAL EXAMINATION: VITAL SIGNS: At this time include temperature 98.0, pulse 60, respiratory rate 16, blood pressure 128/68. GENERAL: This is a chronically ill-appearing Indian male patient who appears to be in no distress. HEENT: Head normocephalic. Nose and throat clear. NECK: Supple. LUNGS: Clear. ABDOMEN: Soft. Bowel sounds present. EXTREMITIES: Lower extremities demonstrate feet did appear to be well perfused, surgically absent right great toe, small ulceration on the plantar aspect of the right first MTP region, a larger ulceration on to the third MTP with a mix of granulation and fibrin. No remaining eschar present, a small ulceration on the plantar aspect of the left foot. NEUROLOGIC: The patient is alert and oriented, has no light touch sensation present in the lower extremities. LABORATORY DATA: Include sodium 134, potassium 4.6, chloride 98, CO2 32, BUN 8, creatinine 0.7. Albumin is 3.8. White blood cell count is 5.5 with hemoglobin of 13.2. RECOMMENDATIONS: At this point in time, the patient was initially scheduled for an MRI. The patient, however, indicated that he has a pacemaker and a spinal cord stimulator and unable to undergo MRI. We will order a CT scan of the right foot. X-rays were unremarkable. We will check a sed rate and a CRP as well. Recommend topical gentamicin and bordered foam to the ulcerations presently. We will also recheck arterial Doppler. Additional decision making to be forthcoming pending additional diagnostic studies. Culture from 07/03/2019 was positive for acinetobacter and beta hemolytic strep. The acinetobacter being sensitive to ampicillin, sulbactam, cefepime, ceftazidime, Cipro, meropenem, [facility] [address] [place] [address] CONSULTATION Name: RODRIGO BAGLEY Room #: 411-P ADM IN M.R.#: [id number] Admission: 07/19/19 Attend Phys: Job Serna MD Discharge: Date of : 59 Report #: [id number] tetracycline, and Bactrim. At this point in time, additional studies are pending. Additional decision making be forthcoming upon their review. <ELECTRONICALLY SIGNED> By: Jerad Mondragon MD 07/21/19 1422 1516 1615 Jerad Mondragon MD /nt
[2019-07-21 16:10] VITALS: BP 150/79
[2019-07-21 19:42] VITALS: BP 155/80
--- NOTE | 2019-07-21 19:59 | NUR ---
ASSUMED CARE OF PATIENT AT 0715, PATIENT ALERT AND ORIENTED X 4. UP AD LULU IN ROOM. PATIENT C/O PAIN WITH LEFT FOOT, THIS RN NOTIFIED DR BLAKELY OF NO PAIN RELIEF, RECEIVED ORDER FOR HYDROCODONE 10MG EVERY 6 HRS/PRN. PATIENT CONTINUES TO C/O NAUSEA, EMESIS X 1 THIS SHIFT. ZOFRAN IV GIVEN, ORDERS FOR KUB AND US OF ABDOMEN DONE THIS SHIFT. PATIENT HAS RIGHT UPPER ARM SINGLE LUMEN PICC LINE IN PLACE. NEW CONSULTS FOR DR RAZA AND DR BALDERAS CALLED THIS SHIFT. DR BALDERAS SAW THE PATENT, SURGERY TOMORROW, RIGHT FOOT PARTIAL AMPUTATION, NPO AFER MIDNIGHT. WOUND CARE DONE RIC/WOUND CARE TEAM RIGHT FOOT AND LEFT FOOT. WILL CONTINUE TO MONITOR.
[2019-07-22 08:34] VITALS: BP 137/82
[2019-07-22 11:30] VITALS: BP 167/85
--- NOTE | 2019-07-22 15:09 | NUR ---
ASSUMED CARE OF PT AT 0700. PT WENT TO SURGERY FOR RIGHT FOOT TRANSMETATARSAL AMPUTATION. PT RETURNED TO UNIT AROUND 1115. PT RECEIVED MORNING MEDS ALONG WITH PRN ZOFRAN. PT ATE LUNCH AND RECEIVED ORAL ANALGESIC FOR PAIN. PT RATES PAIN 7/10 IN THE RIGHT FOOT. RIGHT FOOT DRESSING IS CDI. PICC IN RIGHT UPPER ARM IS PATENT, IV ANTIBIOTICS RECEIVED ORDERED. FALL PRECAUTION IN PLACE. CALL LIGHT IN REACH, WILL CONTINUE TO MONITOR.
[2019-07-22 16:21] VITALS: BP 146/77
[2019-07-22 20:09] VITALS: BP 143/72
[2019-07-23 00:47] VITALS: BP 148/76
--- NOTE | 2019-07-23 04:10 | NUR ---
PATIENT ALERT AND ORIENTED X4. TOLERATING REGULAR DIET. MEDICATED WITH ZOFRAN AND VICODIN. THIS NURSE RECEIVED AN ORDER FROM REACTOR OPERATOR (NANCY) FOR FENTANYL 50 IVP DUE TO PAIN NOT BEING CONTROLLED WITH VICODIN. IV PATENT FOR ABX. RIGHT FOOT SURGICAL DRESSING WITH BLOOD BLED THROUGH. THIS NURSE RE-ENFORCED DRESSING AND ELEVATED FOOT HIGHER, NOTIFIED REACTOR OPERATOR ALSO. RESTING AT TIME OF NOTE. WILL MONITOR BLEEDING.
[2019-07-23 06:03] LABS: ABSOLUTE NEUTROPHILS 9.4 thou/uL (1.4-8.2); BASOPHILS 0.2 % (0.0-2.0); HEMATOCRIT 33.7 % (42.0-52.0); HEMOGLOBIN 11.6 gm/dL (14.0-18.0); LYMPHOCYTES 5.3 % (24.0-44.0); MCH 32.7 pg (26.0-34.0); MCHC 34.5 g/dL (28.0-37.0); MCV 94.7 fL (80.0-100.0); MONOCYTES 5.6 % (1.0-8.0); PLATELET COUNT 158 thou/uL (150-400); POLYS 88.9 % (36.0-66.0); RBC 3.56 mil/uL (4.50-6.00); RDW 13.6 % (10.5-14.5); WBC 10.5 thou/uL (4.0-11.0)
--- NOTE | 2019-07-23 06:24 | NUR ---
PATIENT REMAINS A&0X4. PAIN REDUCING WITH FENTANYL IVP. RE-ENFORCED DRESSING TO RIGHT FOOT WITH SMALL AMOUNT OF BLOOD AT ANKLE AREA (QUARTER SIZE). CBC THIS AM WITH HG 11.6; HCT 33.7 THIS IS DOWN SLIGHTLY FROM WEDNESDAY HG 12.0; HCT 35.5 PATIENT RESTING QUIETLY. TOLERATING WELL.
[2019-07-23 07:30] VITALS: BP 148/78
[2019-07-23 13:33] LABS: CALCIUM 9.2 mg/dL (8.5-10.1); CREATININE 1.1 mg/dL (0.7-1.3); POTASSIUM 4.4 mmol/L (3.5-5.1)
[2019-07-23 15:35] VITALS: BP 129/81
[2019-07-23 17:52] VITALS: BP 129/81
--- NOTE | 2019-07-23 17:58 | NUR ---
PT IS AOX4, VSS, PAIN IN LEFT FOOT CONTROLLED BY PRN PAIN ANALGESIC. STEWARD/STEWARDESS CLUB CAR/SURGEON CHANGED THE PT'S DRESSING TODAY. PT IS CURRENTLY SITTING IN THE RECLINER WITH HIS FOOT ELEVATED. PT DID NOT HAVE N/V, ZOFRAN RECEIVED PRN. PT TOLERATIING MEALS, NWB ON LEFT FOOT & UP WITH STANDBY ASSIST/WALKER TO THE BATHROOM. PT RECEIVED MIRALAX FOR CONSTIPATION. FALL PRECAUTIONS IN PLACE. CALL LIGHT/PERSONAL ITEMS IN REACH. WILL CONTINUE TO MONITOR.
[2019-07-23 19:51] VITALS: BP 127/70
--- NOTE | 2019-07-24 04:37 | NUR ---
PATIENT ALERT AND ORIENTED X4. UP TO CHAIR W/O ASSIST. DRESSING TO RIGHT FOOT DRY AND INTACT. ELEVATED WITH PILLOW. MEDICATED WITH IV FENTANYL X1 DURING THE NIGHT. PATIENT SLEPT ALL NIGHT AFTER PAIN MED. VOIDING PER URINAL. COOPERATIVE WITH CARE. WILL MONITOR.
[2019-07-24 04:59] VITALS: BP 142/77
[2019-07-24 08:00] VITALS: BP 135/86; BP 155/93
--- NOTE | 2019-07-24 13:33 | NUR ---
JOSE reviewed chart and spoke with nursing and attending physician. Pt is progressing towards goals for discharge. [facility] consult ordered to evaluate pt for admission to inpt acute rehab. Consult completed. Pt states he would prefer to go to [facility] as he knows he needs a longer rehab stay then [facility] can provide. JOSE spoke with pt via phone to discuss referral to [facility]. Pt states he has been there in the past and would like to go there prior to going to his sister's home. JOSE faxed SNF referral to [facility] and notified admissions liaison. Awaiting input from the facility. Awaiting final ID recommendations. JOSE updated nursing and attending physician. JOSE is following to assist as needed with discharge planning.
--- NOTE | 2019-07-24 14:35 | HC ---
[facility] [place] [address] CONSULTATION Name: RODRIGO BAGLEY Room #: 411-P [facility] IN M.R.#: [id number] Admission: 07/19/19 Attend Phys: Job Serna MD Discharge: Date of : 59 Report #: [id number] THIS REPORT FOR: cc: Rupa lGez MD, Kimberly A. MD Geha, Daniel J. MD ~ CC: Rupa Serna DATE OF SERVICE: 07/21/2019 INFECTIOUS DISEASE CONSULTATION REASON FOR CONSULTATION: I was asked to evaluate concerning neuropathic foot ulcer and secondary infection. HISTORY OF PRESENT ILLNESS: The patient is a 64-year-old with known history of peripheral neuropathy, peripheral vascular disease, coronary artery disease, COPD and tobacco use. He has had issues with neuropathic ulcers and osteomyelitis, having undergone amputation of his right first ray several years ago. He developed ulceration to the plantar aspect of his right foot after he is undergoing treatment for a callus to this region. He was initially on Augmentin. He was put on a noncontact cast, but worsened. Medications were switched to doxycycline last week. He had significant GI upset with this. His wound continued to progress. He was hospitalized for further treatment. No fever, chills or sweats. Continues to have GI upset. Mild upper abdominal discomfort with nausea. No vomiting, no diarrhea. No cough or sputum production. No dysuria. No other skin lesions noted. Continues to smoke cigarettes. No alcohol intake. REVIEW OF SYSTEMS: A 14-point review of systems was negative other than what has been described above. ALLERGIES: None known. MEDICATIONS: As noted on his MAR, now on vancomycin and Zosyn. PAST MEDICAL HISTORY: COPD, depression, hypertension, hyperlipidemia, smoker, peripheral vascular disease, coronary artery bypass grafting, mitral valve repair, permanent pacemaker, appendectomy, tonsillectomy, left lower extremity stent, right first toe ray amputation 2015, spinal cord stimulator, oral surgery for multiple tooth extractions. FAMILY HISTORY: Negative for tuberculosis by report. SOCIAL HISTORY: Smoker of cigarettes. No significant alcohol intake. [facility] [address] [place] [address] CONSULTATION Name: RODRIGO BAGLEY Room #: 411-P [facility] IN M.R.#: [id number] Admission: 07/19/19 Attend Phys: Job Serna MD Discharge: Date of : 59 Report #: [id number] alone. PHYSICAL EXAMINATION: VITAL SIGNS: Afebrile and hemodynamically stable. SKIN: Without rash or decubitus. No adenopathy palpable. EYES: Without scleral icterus. MOUTH: Without mucositis. NECK: Supple. LUNGS: Clear to auscultation. HEART: Regular, without murmur, gallop or rub. ABDOMEN: Soft and nontender with no hepatosplenomegaly or mass. EXTREMITIES: Pulses in the foot were palpable 2+. Sensation was diminished in the toes. Had a large ulceration over the plantar aspect of metatarsal 2 and 3 with mild surrounding erythema. Minimal edema. Hammertoe deformity of his toes. LABORATORY STUDIES: Reviewed. Cultures reviewed. CT scan of the right foot reviewed. Chest x-ray reviewed. IMPRESSION: 1. 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 Has growth of strep, Klebsiella and Enterobacter so far. 2. Hypertension. 3. Hyperlipidemia. 4. Peripheral vascular disease. 5. Coronary artery disease. 6. Chronic obstructive pulmonary disease and tobacco use. 7. Anxiety, depression. 8. Chronic back pain. 9. Permanent pacemaker in place. RECOMMENDATIONS: We will continue broad antibiotic coverage. Given Klebsiella and Enterobacter as significant pathogens here, we will go with meropenem. Await surgical intervention for forefoot amputation. <ELECTRONICALLY SIGNED> By: Nilesh Moreno MD 07/24/19 1435 28 37 Nilesh Moreno MD /nt
--- NOTE | 2019-07-24 14:56 | NUR ---
ASSUMED CARE AT 0700. PT ALERT AND ORIENTED. NO COMPLAINTS. TOLERATING REG DIET. VOINDING PER URINAL, NO BM. RECIEVING PRN PO PAIN MEDICAITONS. RIGHT FOOT DRESSING C/D/I. BOOT ORDERED BY MD PLACED ON PT THIS MORNING. PT ABLE TO TRANSFER FROM BED TO CHAIR WITHOUT ASSISTANCE. NON WEIGHT BEARING ON RIGHT FOOT. PT/OT SEEN. PICC LINE IN [place] WITHOUT COMPLICATIONS. WILL CONTINUE TO MONITOR
[2019-07-24 20:16] VITALS: BP 149/78
--- NOTE | 2019-07-25 05:49 | NUR ---
Assumed pt care at 1900. Pt's A/OX4,pleasant. VSS. C/o pain to BLE, medicated per EMAR with relief reported. Up with SBA/RW to the bathroom,but voiding per urinal at night. Pt's POD#3 s/p Right TMA, dsg C/D/I with an ortho boot in place. Calls appropriately for help. Has a PICC line on RUE patent with good blood return. Resting w/o distress, Right foot elevated on a pillow. Will continue to monitor pt.
[2019-07-25 05:50] VITALS: BP 140/76
[2019-07-25] MEDS ORDERED: PANTOPRAZOLE SO40 M1 PO (07:56)
[2019-07-25] MEDS ORDERED: DULCOLAX5 MG PO (07:56)
[2019-07-25] MEDS ORDERED: MIRALAX17 GM PO (07:56)
[2019-07-25] MEDS ORDERED: GENTAMICIN SULF15 GM TOP (07:56)
[2019-07-25 09:19] VITALS: BP 129/71
--- NOTE | 2019-07-25 13:56 | NUR ---
DISCHARGE NOTE: SW reviewed chart and spoke with nursing and attending physician. Pt is medically stable for discharge to [facility]. SW faxed finalized discharge orders/summary to [facility] and notified liaison. Wheelchair van transportation scheduled for 1500 per facility's arrangements. SW spoke with pt via phone to provide update and discuss discharge plan. Pt is agreeable with plan and will notify his family. Chart copy requested from . Nursing provided with number to call report. No additional SW needs identified at this time, but is available to assist should needs arise.
--- NOTE | 2019-07-25 16:59 | NUR ---
ASSUMED CARE OF PATIENT AT 0715, PATIENT ALERT AND ORIENTED X 4. UP WITH ASSIST X 1, NWB ON RIGHT FOOT/BOOT IN PLACE. PATIENT HAS RIGHT UPPER ARM SL PICC LINE, DRESSING CHANGED TODAY BY LAYO/IV TEAM. DR OSBORN HERE THIS AM, PATIENT WILL DISCHARGE TO [facility] THIS AFTERNOON. PATIENT C/O PAIN THIS AFTERNOON, HYDROCODONE 10MG 1 TABLET GIVEN PRIOR TO DISCHARGE. PATIENT WILL LEAVE WITH RIGHT SL PICC LINE TO CONTINUE IV ANTIBIOTICS AT FACILITY FOR 4-[address] RAZA. ALL DISCHARGE PAPERWORK AND ALL PERSONAL BELONGINGS WILL BE SENT WITH THE PATIENT AND TRANSPORTER.
--- NOTE | 2019-07-26 13:46 | HC ---
[facility] [place] [address] CONSULTATION Name: RODRIGO BAGLEY Room #: 411-P [facility] IN M.R.#: [id number] Admission: 07/19/19 Attend Phys: Job Serna MD Discharge: 07/25/19 Date of : 59 Report #: [id number] THIS REPORT FOR: cc: Rupa Glez MD, Kimberly A. MD Hanon, Daniel R. DPM ~ CC: Rupa Serna ADMISSION DIAGNOSIS: Right foot ulceration with osteomyelitis. HISTORY OF PRESENT ILLNESS: Podiatric consultation for surgical evaluation of the right foot. The patient has an infected nonhealing ulceration to the right plantar forefoot under the second and third metatarsophalangeal joints. He had prior right first ray amputation in 2016. He noticed a callus to the right foot roughly 6 weeks ago and was [facility] by [facility]. [facility]. He was previously on Augmentin and doxycycline with GI intolerance and vomiting. He was admitted 2 days ago and is currently on parenteral vancomycin and Zosyn. Swab culture taken upon admission grew group B strep, Klebsiella and Enterobacter cloacae. Plain radiographs and CT scan of the right foot, both demonstrate osseous erosion involving the second and third metatarsal heads and bases of the associated proximal phalanges. This correlates the bones over the wound, the 4th and 5th metatarsals do not show these changes. The patient cannot have MRI due to pacemaker. Arterial duplex Doppler shows normal triphasic waveforms throughout the right lower extremity with waveforms maintained at the ankle. Diffuse plaquing is noted. The left lower extremity demonstrates the same. LABORATORY DATA: WBC 5.1, RBC 3.74, hemoglobin 12.0, hematocrit 35.5, platelets 139. BUN 10, creatinine 1.0. Albumin 3.3, glucose 105. CRP 18.1. PHYSICAL EXAMINATION: There is a large ulceration to the right plantar forefoot underlying the second and third metatarsophalangeal joints. The wound is roughly 6 cm in diameter with yellowish fibronecrotic tissue consistent with deep tissue infection. There is localized inflammation to the wound periphery extending to the dorsal foot near the bases of the toes. There is no underlying fluctuance or crepitation. I cannot visualize bone, although there does not appear to be any healthy granulation or tissue within the wound. There is a small ulceration to the base of the first metatarsal resection site that is free of inflammation or cardinal signs of infection. The foot is warm with palpable dorsalis pedis and posterior tibial pulses. He has equinus contracture at the ankle with roughly 0 degrees dorsiflexion with knee bent and extended. There is some skin thickening and callus to the right plantar forefoot surrounding the wound indicative of increased plantar forefoot pressure. IMPRESSION: Likely osteomyelitis with nonhealing ulceration to right plantar forefoot, peripheral sensory neuropathy. [address] [address] CONSULTATION Name: RODRIGO BAGLEY Room #: 411-P [facility] IN M.R.#: [id number] Admission: 07/19/19 Attend Phys: Job Serna MD Discharge: 07/25/19 Date of : 59 Report #: [id number] PLAN: I discussed with the patient and I recommend a distal transmetatarsal amputation with primary closure, but excision and open packing of the plantar wound. I explained to the patient I cannot be certain he has osteomyelitis, and that the osseous changes may be degenerative and chronic in nature. He understands this. I explained that the transmetatarsal amputation would help equalize plantar forefoot pressures and hopefully prevent future forefoot ulceration. He would like to proceed with the surgery, even though I cannot be certain he has osteomyelitis. I will keep the patient n.p.o. and hold his enoxaparin. <ELECTRONICALLY SIGNED> By: Nilesh Young DPM 07/26/19 1346 1752 1806 Nilesh Young DPM /nt
--- NOTE | 2019-07-26 13:46 | HC ---
[facility] [place] [address] CONSULTATION Name: RODRIGO BAGLEY Room #: 411-P [facility] IN M.R.#: [id number] Admission: 07/19/19 Attend Phys: Job Serna MD Discharge: 07/25/19 Date of : 59 Report #: [id number] THIS REPORT FOR: cc: Rupa Glez MD, Kimberly A. MD Hanon, Daniel R. DPM ~ CC: Rupa Serna DATE OF SERVICE: 07/23/2019 CHIEF COMPLAINT: Postoperative day #1 for right transmetatarsal amputation and Achilles tendon lengthening. He relates moderate pain, had some overnight bandage bleed through. Surgical bone and tissue cultures pending, preoperative swab culture polymicrobial with Bacteroides, group B strep, E. coli, Klebsiella. Blood cultures remain negative x 2. He is on parenteral meropenem with good tolerance. He has been afebrile, denies chills or malaise. LABORATORY DATA: WBC 10.5, RBC 3.56, hemoglobin 11.6, hematocrit 33.7, platelets 158. BUN 10, creatinine 1.0, glucose 105. PHYSICAL EXAMINATION: The transmetatarsal incision is well coapted with no dehiscence or signs of acute vascular embarrassment. No underlying fluctuance or crepitation. The foot is warm with immediate capillary refill to the elis-incision. The posterior Achilles Incisions are well approximated. No erythema or cardinal signs of infection to the extremity. Palpable dorsalis pedis and posterior tibial pulses to the right foot. IMPRESSION: Status post right transmetatarsal amputation with tendo-Achilles lengthening; peripheral sensory neuropathy, deep tissue infection. PLAN: The incisions were cleansed and dried and redressed with foam, fluffs, ABDs, Kerlix and Coban. I spoke with nurse about obtaining a Multi Podus, PRAFO boot to maintain his ankle at 90 degrees and offload the heel. She is looking into this with central supply and/or [facility]. The patient remains strictly nonweightbearing. <ELECTRONICALLY SIGNED> By: Nilesh Young DPM 07/26/19 1346 1149 1208 Nilesh Young DPM /nt
--- NOTE | 2019-07-26 13:46 | O ---
[facility] [place] [address] OPERATIVE REPORT Name: RODRIGO BAGLEY Room #: 411-P [facility] IN M.R.#: [id number] Admission: 07/19/19 Attend Phys: Job Serna MD Discharge: 07/25/19 Date of : 59 Report #: [id number] THIS REPORT FOR: cc: Rupa Glez MD, Kimberly A. MD Hanon, Daniel R. DPM ~ CC: Rupa Serna DATE OF SERVICE: 07/22/2019 SURGEON: Nilesh Young DPM PREOPERATIVE DIAGNOSIS: Nonhealing ulceration with deep tissue infection and likely osteomyelitis, right foot. POSTOPERATIVE DIAGNOSIS: Nonhealing ulceration with deep tissue infection and likely osteomyelitis, right foot. PROCEDURE: 1. Right transmetatarsal amputation of metatarsals 2 through 5 with primary closure. 2. Achilles tendon lengthening. ANESTHESIA: General LMA. INJECTABLES: 30 mL of 0.5% Marcaine plain. ESTIMATED BLOOD LOSS: Roughly 10 mL. SUTURES: 2-0 and 3-0 nylon. SPECIMENS: Right metatarsals 2 through 5 with associated digits. CULTURES: 1. Bone, right second metatarsal, aerobic and anaerobic. 2. Soft tissue, right foot, aerobic and anaerobic. HEMOSTASIS: Right calf, tourniquet at 300 mmHg. COMPLICATIONS: None. DESCRIPTION OF PROCEDURE: The patient was brought to the OR and placed on the table supine with induction of general LMA anesthesia. A well-padded right calf tourniquet was placed and a local anesthetic block was given to the right foot. The foot was exsanguinated with inflation of tourniquet. A #[address] [address] OPERATIVE REPORT Name: RODRIGO BAGLEY Room #: 411-P [facility] IN M.R.#: [id number] Admission: 07/19/19 Attend Phys: Job Serna MD Discharge: 07/25/19 Date of : 59 Report #: [id number] was used to create a fishmouth disarticulation to the distal right forefoot. Electrocautery was used for hemostasis. The metatarsals were exposed and transected at the midshaft region with a saw. Metatarsals 2 through 5 and their toes were removed and sent for pathology. A portion of bone from the second metatarsal was sent for culture and infected soft tissue was also sent for culture. I debrided tendons and intraoperative tissue and remodel the skin to facilitate plantar skin flap to be mobilized dorsally and sutured. The wound was flushed with sterile saline with bacitracin irrigant and dried. The plantar skin flap was sutured to the dorsal skin with 2-0 and 3-0 nylon with complete primary closure of the amputation site. I then performed an open Achilles tendon lengthening at the lateral aspect of the tendon, which was a frontal Z-lengthening in standard fashion. Several sutures of 2-0 Vicryl were used to stabilize the lengthening. The wound was flushed, dried and closed with 3-0 nylon. The foot was cleansed, dried and sterile compressive bandage was applied and the patient left the OR alert and oriented with no pain or complications noted. Once the tourniquet was released, there was normal vascular return to the foot. <ELECTRONICALLY SIGNED> By: Nilesh Young DPM 07/26/19 1346 0846 0916 Nilesh Young DPM /nt
--- NOTE | 2019-07-26 16:07 | PATH ---
[facility] [address] [place] [address] PATHOLOGY RPT PROCEDURE Name: RODRIGO CALI Room #: 411-P [facility] IN M.R.#: [id number] Admission: 07/19/19 Date of : 59 Discharge: 07/25/19 Report #: [id number] Path Case #: [id number] [facility] Accession Number: [id number] . 01 Material submitted: . foot - RIGHT FOOT METATARSALS 2-5. Modifiers: right . 01 Clinical history: . Osteomyelitis right foot . 02 Diagnosis: Skin and subcutaneous soft tissue, bone and cartilage (right foot metatarsals 2-5): - Ulceration with marked acute and chronic inflammation, granulation tissue and fibrosis with osteomyelitis of underlying bone. (ERIKA:tam; 07/26/2019) BALJINDER 07/26/2019 1303 Local . 02 Comment: We find no evidence of malignancy in any of the tissue examined. (ERIKA:tam; 07/26/2019) . 02 Electronically signed: . Fran Callejas MD, Pathologist NPI- [id number] . 01 Gross description: . The specimen is received in formalin, labeled "Rodrigo Cali, right foot metatarsals 2 through 5". Received are four amputated digits, consistent with toes 2 through 5, measuring 11.5 x 6.0 x 3.5 cm, 4 metatarsals measuring 7.5 x 3.9 x 2.5 cm, and a separately submitted segment of skin measuring 4.8 x 3.7 x 2.0 cm. The nails are present displaying a pale [place] and grossly unremarkable to thickened appearance. On the second joint of the second toe, there is a well-circumscribed, flat and light [place] lesion measuring 0.5 x 0.3 cm. On the distal aspect of the third toe adjacent to the nailbed, there is a well-circumscribed, flat and [place]ton-brown lesion measuring 0.5 x 0.3 cm. The bone margins of toes 3 through 5 are smooth and concave in appearance, consistent with disarticulation. The bone margin of the second toe is covered and overlying fibrous soft tissue and is slightly jagged in appearance. The bone margins of each toe are inked as follows: Toe 2-black, toe 3-blue, toe 4-yellow, toe 5-red. The distal bone margins of the metatarsals are blunt in appearance, consistent with transection. The opposite bone margins of metatarsals 4 and 5 are smooth and convex in appearance, consistent with disarticulation. The opposite bone margins of metatarsals 2 and 3 are slightly jagged in appearance. The transected margins are inked as follows: Metatarsal 2-black, metatarsal 3-blue, metatarsal 4-yellow, metatarsal 5-red. The [address] [address] PATHOLOGY RPT PROCEDURE Name: RODRIGO CALI Room #: 411-P [facility] IN M.R.#: [id number] Admission: 07/19/19 Date of : 59 Discharge: 07/25/19 Report #: [id number] Path Case #: [id number] submitted segment of skin the specimen is submitted representatively as follows: . A1 horizontal cross-section through lesion on second toe, to include underlying bone, following decalcification A2 longitudinal cross-section through bone margin of second toe, following decalcification A3 longitudinal cross-section through lesion on distal aspect of third toe, to include underlying bone, following decalcification A4 longitudinal cross-section through bone margin of third toe, following decalcification A5 longitudinal cross-section through bone margin of fourth toe, following decalcification A6 longitudinal cross-section through bone margin of fifth toe, following decalcification A7 longitudinal cross-section through bone margin of second metatarsal, following decalcification A8 longitudinal cross-section through bone margin of third metatarsal, following decalcification A9 longitudinal cross-section through bone margin of fourth metatarsal, following decalcification A10 longitudinal cross-section through bone margin of fifth metatarsal, following decalcification A11 computer help desk representative section of lesion on separately submitted segment of skin. . Gross photographs are taken. (CAA; 07/25/2019) QAC/QAC 07/25/2019 1110 Local . 02 Pathologist provided ICD-10: L97.519, L98.9, M86.10 . 02 CPT . 455080, 460333 Specimen Comment: A courtesy copy of this report has been sent to [phone] Specimen Comment: [phone], Specimen Comment: Report sent to ,DR ROJAS / DR FLORES Performed at: [address], [place], [place] [id number] MD Newton Sloan MD Phone: [phone] Performed at: [address] [id number] MD Fran Callejas MD Phone: [phone]
== END 2019-07-25 17:03 | DRG 617 ==
LOC: ER 15:26 → 4S 19:58 → 4N 19:58
PROVIDERS: Internal Medicine; Nurse Practitioner; Physician Assistant; ADMIT Internal Medicine
PROC: B548ZZA Ultrasonography of Superior Vena Cava, Guidance (ICD-10-PCS; principal; 2019-07-19)
PROC: 02H633Z Insertion of Infusion Device into Right Atrium, Percutaneous Approach (ICD-10-PCS; principal; 2019-07-19)
PROC: 0Y6M0ZC Detachment at Right Foot, Partial 3rd Ray, Open Approach (ICD-10-PCS; 2019-07-22)
PROC: 0Y6M0ZB Detachment at Right Foot, Partial 2nd Ray, Open Approach (ICD-10-PCS; 2019-07-22)
PROC: 0Y6M0ZF Detachment at Right Foot, Partial 5th Ray, Open Approach (ICD-10-PCS; 2019-07-22)
PROC: 0L8N0ZZ Division of Right Lower Leg Tendon, Open Approach (ICD-10-PCS; 2019-07-22)
PROC: 0Y6M0ZD Detachment at Right Foot, Partial 4th Ray, Open Approach (ICD-10-PCS; 2019-07-22)
DX: E11.621 Type 2 diabetes mellitus with foot ulcer (principal); L03.115 Cellulitis of right lower limb; M86.8X7 Other osteomyelitis, ankle and foot; E87.1 Hypo-osmolality and hyponatremia; L03.116 Cellulitis of left lower limb; E11.42 Type 2 diabetes mellitus with diabetic polyneuropathy; B96.89 Other specified bacterial agents as the cause of diseases classified elsewhere; I10 Essential (primary) hypertension; E78.5 Hyperlipidemia, unspecified; J43.9 Emphysema, unspecified; F32.9 Major depressive disorder, single episode, unspecified; E11.51 Type 2 diabetes mellitus with diabetic peripheral angiopathy without gangrene; I25.10 Atherosclerotic heart disease of native coronary artery without angina pectoris; G89.29 Other chronic pain; F17.210 Nicotine dependence, cigarettes, uncomplicated; L97.519 Non-pressure chronic ulcer of other part of right foot with unspecified severity; F41.9 Anxiety disorder, unspecified; M54.9 Dorsalgia, unspecified; E11.69 Type 2 diabetes mellitus with other specified complication; L97.529 Non-pressure chronic ulcer of other part of left foot with unspecified severity; R10.32 Left lower quadrant pain; R11.2 Nausea with vomiting, unspecified; G60.9 Hereditary and idiopathic neuropathy, unspecified; D64.9 Anemia, unspecified; Z79.899 Other long term (current) drug therapy; Z79.82 Long term (current) use of aspirin; Z95.1 Presence of aortocoronary bypass graft; Z90.49 Acquired absence of other specified parts of digestive tract; Z95.0 Presence of cardiac pacemaker; Z89.411 Acquired absence of right great toe; Z95.820 Peripheral vascular angioplasty status with implants and grafts; Z79.891 Long term (current) use of opiate analgesic; Z79.02 Long term (current) use of antithrombotics/antiplatelets
CPT/HCPCS: 10102; 10790; 27000; 50101; 50386; 50951; 56525; 56526; 56527; 57091; 62110; 62900; 70005

== ENCOUNTER → 2019-07-19 | Outpatient (CLI) | payer OTHER | LOC: HYPER 13:39 | DX: L89.894 Pressure ulcer of other site, stage 4 (principal); S90.414D Abrasion, right lesser toe(s), subsequent encounter; L84 Corns and callosities; E78.00 Pure hypercholesterolemia, unspecified; E24.9 Cushing's syndrome, unspecified; G60.3 Idiopathic progressive neuropathy; I73.9 Peripheral vascular disease, unspecified; J44.9 Chronic obstructive pulmonary disease, unspecified; I25.10 Atherosclerotic heart disease of native coronary artery without angina pectoris; I25.2 Old myocardial infarction; F17.210 Nicotine dependence, cigarettes, uncomplicated; Z95.1 Presence of aortocoronary bypass graft; Z95.0 Presence of cardiac pacemaker; X58.XXXD Exposure to other specified factors, subsequent encounter ==

== ENCOUNTER → 2019-10-18 | Outpatient (CLI) | payer OTHER ==
[~2019-10-18] MED LIST changes: +DULCOLAX5 MG PO; +GENTAMICIN SULF15 GM TOP; +MIRALAX17 GM PO; +PANTOPRAZOLE SO40 M1 PO
== END ==
LOC: HYPER 07:10
PROVIDERS: ATTEND Emergency Medicine
DX: T87.81 Dehiscence of amputation stump (principal); L89.894 Pressure ulcer of other site, stage 4; S90.414D Abrasion, right lesser toe(s), subsequent encounter; G60.3 Idiopathic progressive neuropathy; L84 Corns and callosities; E24.9 Cushing's syndrome, unspecified; E78.00 Pure hypercholesterolemia, unspecified; I73.89 Other specified peripheral vascular diseases; F17.210 Nicotine dependence, cigarettes, uncomplicated; Z79.82 Long term (current) use of aspirin; Z95.0 Presence of cardiac pacemaker; Z95.1 Presence of aortocoronary bypass graft; Y83.5 Amputation of limb(s) as the cause of abnormal reaction of the patient, or of later complication, without mention of misadventure at the time of the procedure; X58.XXXD Exposure to other specified factors, subsequent encounter

== ENCOUNTER → 2019-10-25 | Outpatient (CLI) | payer OTHER | LOC: HYPER 08:49 | PROVIDERS: ATTEND Emergency Medicine Emergency Medical Services | DX: T81.31XA Disruption of external operation (surgical) wound, not elsewhere classified, initial encounter (principal); L89.894 Pressure ulcer of other site, stage 4; S90.414D Abrasion, right lesser toe(s), subsequent encounter; L84 Corns and callosities; E78.00 Pure hypercholesterolemia, unspecified; E24.9 Cushing's syndrome, unspecified; G62.9 Polyneuropathy, unspecified; G60.3 Idiopathic progressive neuropathy; I25.10 Atherosclerotic heart disease of native coronary artery without angina pectoris; I73.9 Peripheral vascular disease, unspecified; I25.2 Old myocardial infarction; J44.9 Chronic obstructive pulmonary disease, unspecified; F17.210 Nicotine dependence, cigarettes, uncomplicated; Z95.1 Presence of aortocoronary bypass graft; Z95.0 Presence of cardiac pacemaker; X58.XXXD Exposure to other specified factors, subsequent encounter; Y92.238 Other place in hospital as the place of occurrence of the external cause; Y83.8 Other surgical procedures as the cause of abnormal reaction of the patient, or of later complication, without mention of misadventure at the time of the procedure ==

== ENCOUNTER → 2019-11-01 | Outpatient (CLI) | payer OTHER | LOC: HYPER 11:07 | PROVIDERS: ATTEND Emergency Medicine | DX: T87.81 Dehiscence of amputation stump (principal); L89.893 Pressure ulcer of other site, stage 3; L84 Corns and callosities; I73.9 Peripheral vascular disease, unspecified; I25.10 Atherosclerotic heart disease of native coronary artery without angina pectoris; I25.2 Old myocardial infarction; J44.9 Chronic obstructive pulmonary disease, unspecified; E78.00 Pure hypercholesterolemia, unspecified; E24.9 Cushing's syndrome, unspecified; G60.3 Idiopathic progressive neuropathy; F17.210 Nicotine dependence, cigarettes, uncomplicated; Z95.1 Presence of aortocoronary bypass graft; Y83.5 Amputation of limb(s) as the cause of abnormal reaction of the patient, or of later complication, without mention of misadventure at the time of the procedure ==

== ENCOUNTER → 2019-11-08 | Outpatient (CLI) | payer OTHER | LOC: HYPER 09:58 | PROVIDERS: ATTEND Emergency Medicine | DX: T87.81 Dehiscence of amputation stump (principal); L89.893 Pressure ulcer of other site, stage 3; L84 Corns and callosities; I73.9 Peripheral vascular disease, unspecified; I25.10 Atherosclerotic heart disease of native coronary artery without angina pectoris; I25.2 Old myocardial infarction; J44.9 Chronic obstructive pulmonary disease, unspecified; E78.00 Pure hypercholesterolemia, unspecified; E24.9 Cushing's syndrome, unspecified; G60.3 Idiopathic progressive neuropathy; F17.210 Nicotine dependence, cigarettes, uncomplicated; Z95.1 Presence of aortocoronary bypass graft; Y83.5 Amputation of limb(s) as the cause of abnormal reaction of the patient, or of later complication, without mention of misadventure at the time of the procedure ==

== ENCOUNTER → 2019-11-22 | Outpatient (CLI) | payer OTHER | LOC: HYPER 09:55 | PROVIDERS: ATTEND Emergency Medicine | DX: T87.81 Dehiscence of amputation stump (principal); L89.893 Pressure ulcer of other site, stage 3; L84 Corns and callosities; G60.3 Idiopathic progressive neuropathy; G62.9 Polyneuropathy, unspecified; E24.9 Cushing's syndrome, unspecified; E78.00 Pure hypercholesterolemia, unspecified; I73.9 Peripheral vascular disease, unspecified; I25.10 Atherosclerotic heart disease of native coronary artery without angina pectoris; I25.2 Old myocardial infarction; J44.9 Chronic obstructive pulmonary disease, unspecified; F17.210 Nicotine dependence, cigarettes, uncomplicated; Z95.1 Presence of aortocoronary bypass graft; Z95.0 Presence of cardiac pacemaker; Y83.5 Amputation of limb(s) as the cause of abnormal reaction of the patient, or of later complication, without mention of misadventure at the time of the procedure ==

== ENCOUNTER → 2019-12-20 | Outpatient (CLI) | payer OTHER | LOC: HYPER 09:54 | PROVIDERS: ATTEND Emergency Medicine | DX: T87.81 Dehiscence of amputation stump (principal); L84 Corns and callosities; L89.893 Pressure ulcer of other site, stage 3; E78.00 Pure hypercholesterolemia, unspecified; E24.9 Cushing's syndrome, unspecified; I73.9 Peripheral vascular disease, unspecified; I25.2 Old myocardial infarction; I25.10 Atherosclerotic heart disease of native coronary artery without angina pectoris; G60.3 Idiopathic progressive neuropathy; G62.9 Polyneuropathy, unspecified; J44.9 Chronic obstructive pulmonary disease, unspecified; F17.210 Nicotine dependence, cigarettes, uncomplicated; Z95.1 Presence of aortocoronary bypass graft; Y83.5 Amputation of limb(s) as the cause of abnormal reaction of the patient, or of later complication, without mention of misadventure at the time of the procedure ==